=== PATIENT | male | born 1990 | race Caucasian/White ===

== ENCOUNTER 2017-04-21 11:46 | Emergency (ER) | payer OTHER ==
[~2017-04-21] VITALS: Ht 193 cm; Wt 125.6 kg
--- NOTE | 2017-04-21 12:11 | PHYS DOC ---
Past History Past Medical History: No Pertinent History Past Surgical History: Other Additional Past Surgical Histo: elbow surgery Smoking: Cigarettes Adult General Chief Complaint Chief Complaint: ABDOMINAL PAIN [facility] HPI 26-year-old male patient without medical problems complaining of gradual onset of right lower quadrant pain since 2 AM while he was awake as a constant pain without radiation. Patient said the pain was told 3/10. Patient states he woke up at 7 AM because of sharp right lower quadrant pain and rated his pain 9/10. Patient complaining of nausea and anorexia without fever and chills,diarrhea and urinary symptom. Patient states he pass gas less than his usual and had feeling of constipation even had a bowel movement this morning. Did patient had atrial flutter bike and getting worse with movement. Review of Systems Review of Systems Constitutional: Denies fever or chills [] Eyes: Denies change in visual acuity, redness, or eye pain [] HENT: Denies nasal congestion or sore throat [] Respiratory: Denies cough or shortness of breath [] Cardiovascular: No additional information not addressed in HPI [] GI: Reports abdominal pain, nausea, denies vomiting, bloody stools or diarrhea [ ] : Denies dysuria or hematuria [] Musculoskeletal: Denies back pain or joint pain [] Integument: Denies rash or skin lesions [] Neurologic: Denies headache, focal weakness or sensory changes [] Endocrine: Denies polyuria or polydipsia [] All other systems were reviewed and found to be within normal limits, except as documented in this note. Allergies Allergies Allergies Coded Allergies Type Severity Reaction Last Updated Verified latex Allergy Intermediate Rash 04/21/17 Yes Physical Exam Physical Exam Constitutional: Well developed, well nourished, mild distress, non-toxic appearance. [] HENT: Normocephalic, atraumatic, bilateral external ears normal, oropharynx moist, no oral exudates, nose normal. [] Eyes: PERRLA, EOMI, conjunctiva normal, no discharge. [] Neck: Normal range of motion, no tenderness, supple, no stridor. [] Cardiovascular:Heart rate regular rhythm, no murmur [] Lungs & Thorax: Bilateral breath sounds clear to auscultation [] Abdomen: Bowel sounds normal, soft, tenderness and rebound tenderness in right lower quadrant with positive McBurney sign, no masses, no pulsatile masses. [] Skin: Warm, dry, no erythema, no rash. [] Back: No tenderness, no CVA tenderness. [] Extremities: No tenderness, no cyanosis, no clubbing, ROM intact, no edema. [] Neurologic: Alert and oriented X 3, normal motor function, normal sensory function, no focal deficits noted. [] Psychologic: Affect normal, judgement normal, mood normal. [] EKG EKG [] Radiology/Procedures Radiology/Procedures [] [address] [address] IMAGING REPORT Signed PATIENT: SAMANTHA ZAVALA ACCOUNT: [id number] : 1990 LOCATION: ER AGE: 26 SEX: M EXAM STATUS: REG ER ORD. PHYSICIAN: VLADISLAV SOTO MD REASON: right lower quadrant pain, possible appendicitis PROCEDURE: CT ABD PELV W/ORAL&IV CONTRAST Indication: right lower quadrant pain, possible appendicitis Technique: CT abdomen and pelvis with 75 mL of Omnipaque 300 with multiplanar reformats. Comparison: None Findings: Heart is normal in size. No pericardial or pleural effusion. Patchy opacity seen in the left lower lobe. Liver is normal in morphology without focal lesion. Spleen is normal in size without focal lesion. No radiopaque gallstones. No pericholecystic fluid or gallbladder wall thickening. Pancreas show no focal lesion. No definite pancreatic fluid collection or inflammatory changes. No adrenal nodularity or mass lesion. No hydronephrosis or nephrolithiasis. Appendix is dilated measuring 1.2 cm with periappendiceal inflammation and an appendicolith at the base of the appendix measuring 9 mm. No evidence of perforation. No bowel obstruction. No retroperitoneal or pelvic adenopathy. Bladder within normal limits. Prostate and seminal vesicles show no mass lesion. No free intraperitoneal air. No suspicious bony lesion. Impression: 1. Uncomplicated acute appendicitis with appendicolith. 2. Patchy opacities in the left lower lobe likely aspiration or pneumonia. FOR INTERNAL CODING PURPOSES Critical result: Findings discussed with [facility] staff at 04/21/2017 1:47 PM. RESULT CODE: (C) PQRS Compliance Statement: One or more of the following individualized dose reduction techniques were utilized for this examination: 1. Automated exposure control 2. Adjustment of the mA and/or kV according to patient size 3. Use of iterative reconstruction technique DICTATED AND SIGNED BY: LIVAN RENE DO DATE: 04/21/17 2130 CC: VLADISLAV SOTO MD; PCP,NO ~ Course & Med Decision Making Course & Med Decision Making Pertinent Labs and Imaging studies reviewed. (See chart for details) Evaluation of patient in ER showed 26-year-old female patient with complaining of right lower quadrant pain and nausea and anorexia with positive McBurney sign. Patient had acute appendicitis and CT of abdomen and pelvis and treated with IV fluid and Toradol and Zofran and morphine and felt better. Patient and his family requested transferred to [facility]. Dr. Pickens on-call surgeon at accepted transfer at 1407. Patient had a dose of Zosyn prior to transfer to [facility]. [] Dragon Disclaimer Dragon Disclaimer This electronic medical record was generated, in whole or in part, using a voice recognition dictation system. Departure Departure: Impression: Primary Impression: Acute appendicitis Disposition: 02 XFER [facility]M HOSP ([facility] at 1408) Condition: IMPROVED Referrals: CHATO SOTOMAYOR MD (PCP) VLADISLAV SOTO MD Apr 21, 2017 12:11
[2017-04-21] MEDS ORDERED: IOHEXOL 300 MG/ML 75 ML VIAL. IV ONE (12:15)
[2017-04-21] MEDS ORDERED: KETOROLAC 30 MG/ML VIAL. IV ONE (12:15)
[2017-04-21] MEDS ORDERED: IOHEXOL 240 MG/ML 50ML VIAL. PO ONE (12:15)
[2017-04-21] MEDS ORDERED: IV NORMAL SALINE 1,000ML 1,000 ML IV SCH (12:30)
[2017-04-21] MEDS ORDERED: ONDANSETRON PF 4 MG/2 ML VIAL. IV ONE (12:30)
[2017-04-21 12:37] LABS: BASO % 0 % (0-3); EOS # 0.2 x10^3/uL (0.0-0.7); EOS % 2 % (0-3); HEMATOCRIT 43.4 % (39.0-53.0); HEMOGLOBIN 15.1 g/dL (13.0-17.5); LYMPH # 1.7 x10^3/uL (1.0-4.8); LYMPH % 13 % (24-48); MEAN CORPUSCULAR HEMOGLOBIN 31 pg (25-35); MEAN CORPUSCULAR HGB CONC 35 g/dL (31-37); MEAN CORPUSCULAR VOLUME 88 fL (79-100); MONO # 1.6 x10^3/uL (0.0-1.1); MONO % 13 % (0-9); NEUT # 8.8 x10^3uL (1.8-7.7); NEUT % 72 % (31-73); PLATELET COUNT 223 x10^3/uL (140-400); RED BLOOD COUNT 4.93 x10^6/uL (4.30-5.70); RED CELL DISTRIBUTION WIDTH 12.9 % (11.5-14.5); WHITE BLOOD COUNT 12.3 x10^3/uL (4.0-11.0)
[2017-04-21 12:50] LABS: ALBUMIN 3.7 g/dL (3.4-5.0); ALBUMIN/GLOBULIN RATIO 0.9 (1.0-1.7); CALCIUM 8.9 mg/dL (8.5-10.1); POTASSIUM 3.6 mmol/L (3.5-5.1); TOTAL BILIRUBIN 0.8 mg/dL (0.2-1.0); TOTAL PROTEIN 7.6 g/dL (6.4-8.2)
[2017-04-21 13:49] LABS: BACTERIA,URINE 0 /HPF (0-FEW); BILIRUBIN,URINE NEG (NEG); CLARITY,URINE CLEAR; COLOR,URINE YELLOW; GLUCOSE,URINE NEG (NEG); NITRITE,URINE NEG (NEG); RBC,URINE 0 /HPF (0-2); UROBILINOGEN,URINE 0.2 mg/dL (0.2 mg/dL); WBC,URINE RARE /HPF (0-4)
[2017-04-21 13:50] LABS: SQUAMOUS EPITHELIAL CELL,UR OCC /LPF
--- NOTE | 2017-04-21 13:50 | RAD ---
Indication: right lower quadrant pain, possible appendicitis Technique: CT abdomen and pelvis with 75 mL of Omnipaque 300 with multiplanar reformats. Comparison: None Findings: Heart is normal in size. No pericardial or pleural effusion. Patchy opacity seen in the left lower lobe. Liver is normal in morphology without focal lesion. Spleen is normal in size without focal lesion. No radiopaque gallstones. No pericholecystic fluid or gallbladder wall thickening. Pancreas show no focal lesion. No definite pancreatic fluid collection or inflammatory changes. No adrenal nodularity or mass lesion. No hydronephrosis or nephrolithiasis. Appendix is dilated measuring 1.2 cm with periappendiceal inflammation and an appendicolith at the base of the appendix measuring 9 mm. No evidence of perforation. No bowel obstruction. No retroperitoneal or pelvic adenopathy. Bladder within normal limits. Prostate and seminal vesicles show no mass lesion. No free intraperitoneal air. No suspicious bony lesion. Impression: 1. Uncomplicated acute appendicitis with appendicolith. 2. Patchy opacities in the left lower lobe likely aspiration or pneumonia. FOR INTERNAL CODING PURPOSES Critical result: Findings discussed with GUNJAN Forde staff at 04/21/2017 1:47 PM. RESULT CODE: (C) PQRS Compliance Statement: One or more of the following individualized dose reduction techniques were utilized for this examination: 1. Automated exposure control 2. Adjustment of the mA and/or kV according to patient size 3. Use of iterative reconstruction technique
[2017-04-21] MEDS ORDERED: MORPHINE SULFATE 4 MG/ML DISP.SYRIN. IV ONE (14:00)
[2017-04-21] MEDS ORDERED: PIPERACILLIN/TAZOBACTAM 3.375 GM in IV NORMAL SALINE 50ML 50 ML IV ONE ×2 (14:00→15:00)
[2017-04-21] MEDS ORDERED: IV NORMAL SALINE 1,000ML 1,000 ML IV ONE (14:00)
[2017-04-21] MEDS ORDERED: PIPERACILLIN/TAZO IV Push 3.375 GM VIAL. IVP ONE ×2 (14:31→14:36)
[2017-04-21] MEDS ORDERED: IV NORMAL SALINE 50ML 50 ML ONE (14:35)
[2017-04-21 14:40] VITALS: BP 142/74
== END 2017-04-21 14:50 | disposition short-term general hospital (02) ==
LOC: ER 11:46
DX: K35.80 Unspecified acute appendicitis (principal); F17.210 Nicotine dependence, cigarettes, uncomplicated; Z91.040 Latex allergy status
CPT/HCPCS: 36415; 74177; 80053; 81001; 83690; 85025; 96374; 96375; 99285; J1885; J2270; J2405; J2543; Q9966; J7030